=== PATIENT | female | born 1980 | race Caucasian/White ===

== ENCOUNTER 2017-02-14 15:46 | Emergency (ER) | payer MEDICAID ==
[2017-02-14] MEDS ORDERED: LORazepam 2 MG/ML MDV IVPUSH ONE ×2 (16:28→17:44)
[2017-02-14] MEDS ORDERED: Lactated Ringers 1,000 ML IV SCH (16:30)
--- NOTE | 2017-02-14 16:30 | EDM.PDOC ---
[id number] Chief Complaint: Abdominal Pain Stated Complaint: ABDOMINAL PAIN Time Seen by Provider: 02/14/17 16:24 - Related Data Allergies Allergy/AdvReac Type Severity Reaction Status Date / Time nitrofurantoin Allergy Severe Airway Verified 08/15/16 23:03 [From Macrodantin] Tightness amoxicillin [Amoxicillin] Allergy Rash Verified 08/15/16 23:03 ciprofloxacin Allergy Rash Verified 08/15/16 23:03 codeine Allergy Hives Verified 08/15/16 23:03 doxycycline Allergy Rash Verified 08/15/16 23:03 Penicillins Allergy Rash Verified 08/15/16 23:03 Sulfa (Sulfonamide Allergy Rash Verified 08/15/16 23:03 Antibiotics) sulfamethoxazole Allergy Hives Verified 08/15/16 23:03 [From Bactrim] trimethoprim [From Bactrim] Allergy Hives Verified 08/15/16 23:03 amoxicillin Allergy Airway Uncoded 08/15/16 23:03 Tightness bee venom Allergy Cannot Uncoded 08/15/16 23:03 Remember Home Meds: Home Meds LORazepam [Ativan] 1 mg PO ASDIRECTED PRN 06/11/14 [History] Ondansetron [Zofran ODT] 4 mg PO ASDIRECTED 06/11/14 [History] Venlafaxine [Effexor XR] 150 mg PO DAILY 06/11/14 [History] Multivitamin [Multivitamins] 1 tab PO DAILY 11/26/15 [History] Acyclovir [Zovirax 5% Oint] 1 applic TOP Q3H 06/23/16 [History] Docusate Sodium [Doc-Q-Lace] 200 mg PO DAILY 06/23/16 [History] EPINEPHrine [Epipen 2-Domenico] 0.3 ml IM ASDIRECTED 06/23/16 [History] Tretinoin [Retin-A 0.025% Cream] 1 applic TOP DAILY 06/23/16 [History] buPROPion [Wellbutrin XL] 300 mg PO DAILY 06/23/16 [History] Course - Vital Signs Last Recorded V/S: Last Vital Signs Temp 97.7 F 02/14/17 15:53 Pulse 82 02/14/17 21:00 Resp 16 02/14/17 21:00 BP 121/80 02/14/17 21:00 Pulse Ox 93 L 02/14/17 21:00 - Orders/Labs/Meds Orders: Active Orders 24 hr Category Date Time Status Peripheral IV Care [RC] . DIRECTED Care 02/14/17 16:27 Active Chest Abdomen Pelvis w Cont [CT] Stat Exams 02/14/17 18:00 Taken Peripheral IV Insertion Adult [OM.PC] Urgent Oth 02/14/17 16:27 Ordered Labs: Laboratory Tests 02/14/17 02/14/17 02/14/17 Range/Units 16:40 16:40 16:40 WBC 13.4 H (4.5-11.0) K/uL RBC 4.65 (3.30-5.50) M/uL Hgb 13.4 (12.0-15.0) g/dL Hct 40.9 (36.0-48.0) % MCV 88 (80-98) fL MCH 29 (27-31) pg MCHC 33 (32-36) % Plt Count 358 (150-400) K/uL Neut % (Auto) 60 (36-66) % Lymph % (Auto) 29 (24-44) % [place] % (Auto) 7 H (2-6) % Eos % (Auto) 3 (2-4) % Baso % (Auto) 1 (0-1) % Sodium 141 (140-148) mmol/L Potassium 4.3 (3.6-5.2) mmol/L Chloride 102 (100-108) mmol/L Carbon Dioxide 28 (21-32) mmol/L Anion Gap 10.6 (5.0-14.0) mmol/L BUN 12 (7-18) mg/dL Creatinine 0.9 (0.6-1.0) mg/dL Est Cr Clr Drug Dosing 83.23 mL/min Estimated GFR (MDRD) > 60 (>60) Glucose 86 (74-106) mg/dL Lactic Acid 4.7 H (0.4-2.0) mmol/L Calcium 9.4 D (8.5-10.1) mg/dL Total Bilirubin 0.3 (0.2-1.0) mg/dL AST 15 (15-37) U/L ALT 19 (12-78) U/L Alkaline Phosphatase 119 H (46-116) U/L Troponin I < 0.017 (0.000-0.056) ng/mL Total Protein 7.7 (6.4-8.2) g/dL Albumin 4.0 (3.4-5.0) g/dL Globulin 3.7 H (2.3-3.5) g/dL Albumin/Globulin Ratio 1.1 L (1.2-2.2) Lipase 86 (73-393) U/L Urine Color Urine Appearance Urine pH (4.5-8.0) Ur Specific [place] (1.008-1.030) Urine Protein (NEGATIVE) mg/dL Urine Glucose (UA) (NEGATIVE) mg/dL Urine Ketones (NEGATIVE) mg/dL Urine Occult Blood (NEGATIVE) Urine Nitrite (NEGATIVE) Urine Bilirubin (NEGATIVE) Urine Urobilinogen (NORMAL) mg/dL Ur Leukocyte Esterase (NEGATIVE) Urine RBC (0-5) Urine WBC (0-5) Ur Epithelial Cells Amorphous Sediment Urine Bacteria Urine Mucus Urine Other Urinalysis Comment Urine Opiates Screen (NEGATIVE) Ur Oxycodone Screen (NEGATIVE) Urine Methadone Screen (NEGATIVE) Ur Propoxyphene Screen (NEGATIVE) Ur Barbiturates Screen (NEGATIVE) Ur Tricyclics Screen (NEGATIVE) Ur Phencyclidine Scrn (NEGATIVE) Ur Amphetamine Screen (NEGATIVE) U Methamphetamines Scrn (NEGATIVE) Urine MDMA Screen (NEGATIVE) U Benzodiazepines Scrn (NEGATIVE) U Cocaine Metab Screen (NEGATIVE) U Marijuana (THC) Screen (NEGATIVE) 02/14/17 02/14/17 Range/Units 17:21 17:21 WBC (4.5-11.0) K/uL RBC (3.30-5.50) M/uL Hgb (12.0-15.0) g/dL Hct (36.0-48.0) % MCV (80-98) fL MCH (27-31) pg MCHC (32-36) % Plt Count (150-400) K/uL Neut % (Auto) (36-66) % Lymph % (Auto) (24-44) % [place] % (Auto) (2-6) % Eos % (Auto) (2-4) % Baso % (Auto) (0-1) % Sodium (140-148) mmol/L Potassium (3.6-5.2) mmol/L Chloride (100-108) mmol/L Carbon Dioxide (21-32) mmol/L Anion Gap (5.0-14.0) mmol/L BUN (7-18) mg/dL Creatinine (0.6-1.0) mg/dL Est Cr Clr Drug Dosing mL/min Estimated GFR (MDRD) (>60) Glucose (74-106) mg/dL Lactic Acid (0.4-2.0) mmol/L Calcium (8.5-10.1) mg/dL Total Bilirubin (0.2-1.0) mg/dL AST (15-37) U/L ALT (12-78) U/L Alkaline Phosphatase (46-116) U/L Troponin I (0.000-0.056) ng/mL Total Protein (6.4-8.2) g/dL Albumin (3.4-5.0) g/dL Globulin (2.3-3.5) g/dL Albumin/Globulin Ratio (1.2-2.2) Lipase (73-393) U/L Urine Color Yellow Urine Appearance Cloudy Urine pH 7.0 (4.5-8.0) Ur Specific [place] 1.015 (1.008-1.030) Urine Protein Negative (NEGATIVE) mg/dL Urine Glucose (UA) Normal (NEGATIVE) mg/dL Urine Ketones Negative (NEGATIVE) mg/dL Urine Occult Blood Negative (NEGATIVE) Urine Nitrite Negative (NEGATIVE) Urine Bilirubin Negative (NEGATIVE) Urine Urobilinogen Normal (NORMAL) mg/dL Ur Leukocyte Esterase Negative (NEGATIVE) Urine RBC 0-5 (0-5) Urine WBC 5-10 H (0-5) Ur Epithelial Cells Moderate Amorphous Sediment Few Urine Bacteria Few Urine Mucus Few Urine Other See note Urinalysis Comment Clue cells seen Urine Opiates Screen Negative (NEGATIVE) Ur Oxycodone Screen Positive H (NEGATIVE) Urine Methadone Screen Negative (NEGATIVE) Ur Propoxyphene Screen Negative (NEGATIVE) Ur Barbiturates Screen Negative (NEGATIVE) Ur Tricyclics Screen Negative (NEGATIVE) Ur Phencyclidine Scrn Negative (NEGATIVE) Ur Amphetamine Screen Positive H (NEGATIVE) U Methamphetamines Scrn Positive H (NEGATIVE) Urine MDMA Screen Positive H (NEGATIVE) U Benzodiazepines Scrn Negative (NEGATIVE) U Cocaine Metab Screen Negative (NEGATIVE) U Marijuana (THC) Screen Negative (NEGATIVE) Meds: Medications Discontinued Medications Generic Name Dose Route Start Last Admin Trade Name Freq PRN Reason Stop Dose Admin Lactated Ringer's 1,000 mls @ 999 mls/hr 02/14/17 16:30 02/14/17 16:43 Ringers, Lactated IV 999 mls/hr ASDIRECTED JONATHAN Administration Lactated Ringer's 1,000 mls @ 999 mls/hr 02/14/17 17:42 02/14/17 17:43 Ringers, Lactated IV 02/14/17 18:42 999 mls/hr BOLUS ONE Administration Sodium Chloride 80 mls @ 3 mls/sec 02/14/17 18:30 02/14/17 18:40 Normal Saline IV 3 mls/sec ASDIRECTED JONATHAN Administration Iopamidol 100 ml 02/14/17 18:30 02/14/17 18:40 Isovue-300 (61%) IV 100 ml . DIRECTED JONATHAN Administration Lorazepam 2 mg 02/14/17 16:28 02/14/17 16:41 Ativan IVPUSH 02/14/17 16:29 2 mg ONETIME ONE Administration Lorazepam 2 mg 02/14/17 17:44 02/14/17 18:13 Ativan IVPUSH 02/14/17 17:45 2 mg ONETIME ONE Administration Sodium Chloride 10 ml 02/14/17 16:27 02/14/17 18:38 Saline Flush FLUSH 10 ml ASDIRECTED PRN Administration Keep Vein Open - Re-Assessments/Exams Free Text/Narrative Re-Assessment/Exam: 02/14/17 23:04 Care of this patient was assumed from Dr. Schofield at about [address] PM [address] An abdominal CT was pending. The patient had been quite agitated earlier and had received multiple doses of Ativan. After the CT results came back the patient was too sedated to even talk with her. The CT was negative. We observed the lady several hours in the ER until she became more alert and could be discharged home. My impression is that she is been abusing methamphetamine and probably is in an opiate withdrawal. She is ready for discharge at this time. Departure - Departure Time of Disposition: 23:00 Disposition: Home, Self-Care 01 Condition: Fair Clinical Impression: Abdominal pain, Drug abuse - Discharge Information Instructions: Chemical Dependency, Abdominal or Pelvic Ultrasound, [id number] Referrals: PCP,None [Primary Care Provider] - Forms: ED Department Discharge Additional Instructions: Continue taking your prescription medicines. Your urine showed the opiate oxycodone. If a person has been taking oxycodone and they stop they will get withdrawal symptoms such as nausea vomiting and abdominal pain. Your urine also showed some methamphetamine which was probably the cause of your agitation and that's why you had to receive the sedative medication Ativan. You should avoid methamphetamine. - My Orders Last 24 Hours: My Active Orders 02/14/17 16:27 Peripheral IV Care [RC] . DIRECTED Peripheral IV Insertion Adult [OM.PC] Urgent 02/14/17 18:00 Chest Abdomen Pelvis w Cont [CT] Stat - Assessment/Plan Last 24 Hours: My Active Orders 02/14/17 16:27 Peripheral IV Care [RC] . DIRECTED Peripheral IV Insertion Adult [OM.PC] Urgent 02/14/17 18:00 Chest Abdomen Pelvis w Cont [CT] Stat <ConnerrHair - Last Filed: 02/15/17 07:01> ED HPI GENERAL MEDICAL PROBLEM - General Source of Information: Reports: Patient, RN Notes Reviewed History Limitations: Reports: No Limitations - History of Present Illness INITIAL COMMENTS - FREE TEXT/NARRATIVE: 36-year-old female presents emergency department day complaint of abdominal pain she is visibly agitated shaking and very diaphoretic difficult to obtain any history or review of systems due to her anxious state Lower Abdominal Pain Score (Numeric/FACES): 10 Past Medical History Gastrointestinal History: Reports: Cholelithiasis, Chronic Constipation, Gastritis Genitourinary History: Reports: Renal Calculus APPLICATION TESTER History: Reports: Polycystic Ovaries, Psychiatric History: Reports: Addiction, Depression Endocrine/Metabolic History: Reports: Other (See Below) Other Endocrine/Metabolic History: Graves disease Dermatologic History: Reports: Other (See Below) Other Dermatologic History: achne - Infectious Disease History Infectious Disease History: Reports: Chicken Pox - Past Surgical History GI Surgical History: Reports: Cholecystectomy Female Surgical History: Reports: Kidney stone extraction Social & Family History - Tobacco Use Smoking Status *Q: Heavy Tobacco Smoker Years of Tobacco use: 20 Packs/Tins Daily: 0.5 Used Tobacco, but Quit: No Second Hand Smoke Exposure: Yes - Caffeine Use Caffeine Use: Reports: Coffee, Energy Drinks, Soda Caffeine Use Comment: lots - Alcohol Use Days Per Week of Alcohol Use: 3 Number of Drinks Per Day: 2 Total Drinks Per Week: 6 - Recreational Drug Use Recreational Drug Use: No - Living Situation & Occupation Living situation: Reports: with Significant Other ED ROS GENERAL - Review of Systems Review Of Systems: Unable To Obtain ED EXAM, GI/ABD - Physical Exam Exam: See Below Exam Limited By: Intoxication General Appearance: Severe Distress Respiratory/Chest: No Respiratory Distress, Lungs Clear, Normal Breath Sounds, No Accessory Muscle Use Cardiovascular: Regular Rate, Rhythm, No Murmur GI/Abdominal: Other (Will not allow me to do exam due to hyperactive state) Course - Orders/Labs/Meds Labs: Laboratory Tests 02/14/17 02/14/17 02/14/17 Range/Units 16:40 16:40 16:40 WBC 13.4 H (4.5-11.0) K/uL RBC 4.65 (3.30-5.50) M/uL Hgb 13.4 (12.0-15.0) g/dL Hct 40.9 (36.0-48.0) % MCV 88 (80-98) fL MCH 29 (27-31) pg MCHC 33 (32-36) % Plt Count 358 (150-400) K/uL Neut % (Auto) 60 (36-66) % Lymph % (Auto) 29 (24-44) % [place] % (Auto) 7 H (2-6) % Eos % (Auto) 3 (2-4) % Baso % (Auto) 1 (0-1) % Sodium 141 (140-148) mmol/L Potassium 4.3 (3.6-5.2) mmol/L Chloride 102 (100-108) mmol/L Carbon Dioxide 28 (21-32) mmol/L Anion Gap 10.6 (5.0-14.0) mmol/L BUN 12 (7-18) mg/dL Creatinine 0.9 (0.6-1.0) mg/dL Est Cr Clr Drug Dosing 83.23 mL/min Estimated GFR (MDRD) > 60 (>60) Glucose 86 (74-106) mg/dL Lactic Acid 4.7 H (0.4-2.0) mmol/L Calcium 9.4 D (8.5-10.1) mg/dL Total Bilirubin 0.3 (0.2-1.0) mg/dL AST 15 (15-37) U/L ALT 19 (12-78) U/L Alkaline Phosphatase 119 H (46-116) U/L Troponin I < 0.017 (0.000-0.056) ng/mL Total Protein 7.7 (6.4-8.2) g/dL Albumin 4.0 (3.4-5.0) g/dL Globulin 3.7 H (2.3-3.5) g/dL Albumin/Globulin Ratio 1.1 L (1.2-2.2) Lipase 86 (73-393) U/L Urine Color Urine Appearance Urine pH (4.5-8.0) Ur Specific [place] (1.008-1.030) Urine Protein (NEGATIVE) mg/dL Urine Glucose (UA) (NEGATIVE) mg/dL Urine Ketones (NEGATIVE) mg/dL Urine Occult Blood (NEGATIVE) Urine Nitrite (NEGATIVE) Urine Bilirubin (NEGATIVE) Urine Urobilinogen (NORMAL) mg/dL Ur Leukocyte Esterase (NEGATIVE) Urine RBC (0-5) Urine WBC (0-5) Ur Epithelial Cells Amorphous Sediment Urine Bacteria Urine Mucus Urine Other Urinalysis Comment Urine Opiates Screen (NEGATIVE) Ur Oxycodone Screen (NEGATIVE) Urine Methadone Screen (NEGATIVE) Ur Propoxyphene Screen (NEGATIVE) Ur Barbiturates Screen (NEGATIVE) Ur Tricyclics Screen (NEGATIVE) Ur Phencyclidine Scrn (NEGATIVE) Ur Amphetamine Screen (NEGATIVE) U Methamphetamines Scrn (NEGATIVE) Urine MDMA Screen (NEGATIVE) U Benzodiazepines Scrn (NEGATIVE) U Cocaine Metab Screen (NEGATIVE) U Marijuana (THC) Screen (NEGATIVE) 02/14/17 02/14/17 Range/Units 17:21 17:21 WBC (4.5-11.0) K/uL RBC (3.30-5.50) M/uL Hgb (12.0-15.0) g/dL Hct (36.0-48.0) % MCV (80-98) fL MCH (27-31) pg MCHC (32-36) % Plt Count (150-400) K/uL Neut % (Auto) (36-66) % Lymph % (Auto) (24-44) % [place] % (Auto) (2-6) % Eos % (Auto) (2-4) % Baso % (Auto) (0-1) % Sodium (140-148) mmol/L Potassium (3.6-5.2) mmol/L Chloride (100-108) mmol/L Carbon Dioxide (21-32) mmol/L Anion Gap (5.0-14.0) mmol/L BUN (7-18) mg/dL Creatinine (0.6-1.0) mg/dL Est Cr Clr Drug Dosing mL/min Estimated GFR (MDRD) (>60) Glucose (74-106) mg/dL Lactic Acid (0.4-2.0) mmol/L Calcium (8.5-10.1) mg/dL Total Bilirubin (0.2-1.0) mg/dL AST (15-37) U/L ALT (12-78) U/L Alkaline Phosphatase (46-116) U/L Troponin I (0.000-0.056) ng/mL Total Protein (6.4-8.2) g/dL Albumin (3.4-5.0) g/dL Globulin (2.3-3.5) g/dL Albumin/Globulin Ratio (1.2-2.2) Lipase (73-393) U/L Urine Color Yellow Urine Appearance Cloudy Urine pH 7.0 (4.5-8.0) Ur Specific [place] 1.015 (1.008-1.030) Urine Protein Negative (NEGATIVE) mg/dL Urine Glucose (UA) Normal (NEGATIVE) mg/dL Urine Ketones Negative (NEGATIVE) mg/dL Urine Occult Blood Negative (NEGATIVE) Urine Nitrite Negative (NEGATIVE) Urine Bilirubin Negative (NEGATIVE) Urine Urobilinogen Normal (NORMAL) mg/dL Ur Leukocyte Esterase Negative (NEGATIVE) Urine RBC 0-5 (0-5) Urine WBC 5-10 H (0-5) Ur Epithelial Cells Moderate Amorphous Sediment Few Urine Bacteria Few Urine Mucus Few Urine Other See note Urinalysis Comment Clue cells seen Urine Opiates Screen Negative (NEGATIVE) Ur Oxycodone Screen Positive H (NEGATIVE) Urine Methadone Screen Negative (NEGATIVE) Ur Propoxyphene Screen Negative (NEGATIVE) Ur Barbiturates Screen Negative (NEGATIVE) Ur Tricyclics Screen Negative (NEGATIVE) Ur Phencyclidine Scrn Negative (NEGATIVE) Ur Amphetamine Screen Positive H (NEGATIVE) U Methamphetamines Scrn Positive H (NEGATIVE) Urine MDMA Screen Positive H (NEGATIVE) U Benzodiazepines Scrn Negative (NEGATIVE) U Cocaine Metab Screen Negative (NEGATIVE) U Marijuana (THC) Screen Negative (NEGATIVE)
[2017-02-14] MEDS: Sodium Chloride 0.9% 10 ML Syringe FLUSH PRN ×2 (16:43→18:38)
[2017-02-14] MEDS ORDERED: Lactated Ringers 1,000 ML IV ONE (17:42)
[2017-02-14] MEDS ORDERED: Iopamidol 612 MG/ML 100 ML Bottle IV SCH (18:30)
[2017-02-14] MEDS ORDERED: Sodium Chloride 0.9% 80 ML IV SCH (18:30)
[2017-02-14 21:00] VITALS: BP 121/80
== END 2017-02-14 23:15 | disposition home or self-care (01) ==
LOC: JP.ED 15:46
DX: R10.30 Lower abdominal pain, unspecified (principal); E28.2 Polycystic ovarian syndrome; F17.210 Nicotine dependence, cigarettes, uncomplicated; F19.10 Other psychoactive substance abuse, uncomplicated; Z87.442 Personal history of urinary calculi; Z90.49 Acquired absence of other specified parts of digestive tract
CPT/HCPCS: 36415; 71260; 74177; 80053; 80305; 81001; 83605; 83690; 84484; 85025; 96361; 96374; 96376; 99284; J2060; J7030; J7050; J7120; Q9967

== ENCOUNTER 2020-07-11 23:26 | Emergency (ER) | payer MEDICAID ==
[2020-07-11 23:58] VITALS: BP 131/82; PULSE 76
--- NOTE | 2020-07-12 00:11 | EDM.PDOC ---
ED HPI GENERAL MEDICAL PROBLEM - General Chief Complaint: Allergic Reaction Stated Complaint: REACTION Time Seen by Provider: 07/11/20 23:59 Source of Information: Reports: Patient, RN Notes Reviewed History Limitations: Reports: No Limitations - History of Present Illness INITIAL COMMENTS - FREE TEXT/NARRATIVE: 39-year-old female presents emergency department today with complaint of allergic reaction she is on sure of what could be causing this she does have some edema around her eyes some inflammation in her lips she states it feels like her tongue is swollen no difficulty breathing no difficulty swallowing has visited with her primary care about this did do a short course of steroids which helped her however she has been off medication for 2 weeks also of note they did get a new supply of masks in about 2 weeks prior, she has tried both Benadryl and Claritin with no relief heartburn Pain Score (Numeric/FACES): 7 - Related Data Allergies Allergy/AdvReac Type Severity Reaction Status Date / Time nitrofurantoin Allergy Severe Airway Verified 08/15/16 23:03 [From Macrodantin] Tightness amoxicillin [Amoxicillin] Allergy Rash Verified 08/15/16 23:03 ciprofloxacin Allergy Rash Verified 08/15/16 23:03 codeine Allergy Hives Verified 08/15/16 23:03 doxycycline Allergy Rash Verified 08/15/16 23:03 Penicillins Allergy Rash Verified 08/15/16 23:03 Sulfa (Sulfonamide Allergy Rash Verified 08/15/16 23:03 Antibiotics) sulfamethoxazole Allergy Hives Verified 08/15/16 23:03 [From Bactrim] trimethoprim [From Bactrim] Allergy Hives Verified 08/15/16 23:03 amoxicillin Allergy Airway Uncoded 08/15/16 23:03 Tightness bee venom Allergy Cannot Uncoded 08/15/16 23:03 Remember Home Meds: Home Meds NK [No Known Home Meds] 07/11/20 [History] Past Medical History Gastrointestinal History: Reports: Cholelithiasis, Chronic Constipation, Gastritis Genitourinary History: Reports: Renal Calculus OCCUPATIONAL THERAPY DIRECTOR History: Reports: Polycystic Ovaries, Psychiatric History: Reports: Addiction, Depression Endocrine/Metabolic History: Reports: Other (See Below) Other Endocrine/Metabolic History: Graves disease Dermatologic History: Reports: Other (See Below) Other Dermatologic History: acne - Infectious Disease History Infectious Disease History: Reports: Chicken Pox - Past Surgical History GI Surgical History: Reports: Cholecystectomy Female Surgical History: Reports: Kidney stone extraction Social & Family History - Tobacco Use Tobacco Use Status *Q: Current Every Day Tobacco User Years of Tobacco use: 34 Packs/Tins Daily: 0.5 - Caffeine Use Caffeine Use: Reports: Coffee Caffeine Use Comment: lots - Recreational Drug Use Recreational Drug Use: No - Living Situation & Occupation Living situation: Reports: with Significant Other ED ROS ALLERGIC REACTION - Review of Systems Review Of Systems: See Below Constitutional: Reports: No Symptoms HEENT: Reports: Throat Swelling, Other (Edema around the eyes, lip swelling) Respiratory: Reports: No Symptoms Cardiovascular: Reports: No Symptoms GI/Abdominal: Reports: No Symptoms ED EXAM GENERAL NO PERIP PULSE - Physical Exam Exam: See Below Exam Limited By: No Limitations General Appearance: Alert, WD/WN, No Apparent Distress Eye Exam: Bilateral Eye: Other (Edema upper eyelids) Throat/Mouth: Normal Teeth, Normal Gums, Normal Voice, No Airway Compromise, Inflammation Neck: Normal Inspection, Supple, Non-Tender, Full Range of Motion Respiratory/Chest: No Respiratory Distress, Lungs Clear, Normal Breath Sounds, No Accessory Muscle Use, Chest Non-Tender Cardiovascular: Regular Rate, Rhythm, No Murmur Course - Vital Signs Last Recorded V/S: Last Vital Signs Temp 98.8 F 07/11/20 23:52 Pulse 76 07/11/20 23:52 Resp 15 07/11/20 23:52 BP 131/82 07/11/20 23:52 Pulse Ox 96 07/11/20 23:52 Departure - Departure Time of Disposition: 00:10 Disposition: Home, Self-Care 01 Condition: Fair Clinical Impression: Allergic reaction Qualifiers: Encounter type: initial encounter Qualified Code(s): T78.40XA - Allergy, unspecified, initial encounter - Discharge Information Instructions: Allergies, Adult, [id number] Referrals: Rj Lew MD [Primary Care Provider] - Additional Instructions: Continue with the prednisone 10 mg/day, follow-up with your primary care in the next 3 to 5 days for reevaluation, call or return to the emergency department worsening of symptoms Sepsis Event Note (ED) - Evaluation Sepsis Screening Result: No Definite Risk - Focused Exam Vital Signs: Vital Signs Temp Pulse Resp BP Pulse Ox 07/11/20 23:52 98.8 F 76 15 131/82 96 - Assessment/Plan Plan: Assessment Acuity = acute Site and laterality = allergic reaction Etiology = unknown suspicious for mask Manifestations = none Location of injury = Home Lab values = none Plan Prescription written for prednisone 10 mg p.o. daily continue to follow-up with primary care for further evaluation This note was dictated using Prism[employer] voice recognition software please call with any questions on syntax or grammar.
== END 2020-07-12 00:24 | disposition home or self-care (01) ==
LOC: JP.ED 23:26
DX: T78.40XA Allergy, unspecified, initial encounter (principal); F17.210 Nicotine dependence, cigarettes, uncomplicated; Z88.1 Allergy status to other antibiotic agents; Z88.5 Allergy status to narcotic agent; Z88.0 Allergy status to penicillin; Z88.2 Allergy status to sulfonamides; Z91.030 Bee allergy status; Z90.49 Acquired absence of other specified parts of digestive tract
CPT/HCPCS: 99283

== ENCOUNTER 2023-01-09 02:29 | Emergency (ER) | payer MEDICAID ==
[2023-01-09 02:42] VITALS: BP 138/85; PULSE 74
[2023-01-09] MEDS ORDERED: Alum Hydrox/Mag Hydrox/Simeth 15 ML, Lidocaine 2% 15 ML PO ONE ×2 (03:01)
[2023-01-09] MEDS ORDERED: Aluminum Hydroxide/Magnesium Hydroxide/Simethicone Susp 30 ML Cup PO ONE (03:09)
[2023-01-09] MEDS ORDERED: Pantoprazole 40 MG Vial IVPUSH ONE (03:30)
[2023-01-09] MEDS ORDERED: Lidocaine 2% Jelly 10 ML Urojet MUCMEM ONE (03:56)
== END 2023-01-09 04:16 | disposition home or self-care (01) ==
LOC: EEVIPCON 02:29 → JP.ED 02:29
DX: R12 Heartburn (principal); T38.0X5A Adverse effect of glucocorticoids and synthetic analogues, initial encounter; Z88.1 Allergy status to other antibiotic agents; Z88.5 Allergy status to narcotic agent; Z88.0 Allergy status to penicillin; Z91.030 Bee allergy status; Z88.2 Allergy status to sulfonamides; Z72.0 Tobacco use
CPT/HCPCS: 96374; 99283; A9270; C9113

== ENCOUNTER 2025-03-03 21:41 | Emergency (ER) | payer BC, MEDICAID ==
[2025-03-03 23:05] LABS: BASOPHILS ABSOLUTE AUTO 0.07 K/uL (0.00-0.10); BASOPHILS PERCENT AUTO 0.7 % (0.1-1.3); EOSINOPHILS ABSOLUTE AUTO 0.69 K/uL (0.00-0.40); EOSINOPHILS PERCENT AUTO 6.6 % (0.0-5.4); IMMATURE GRAN ABSOLUTE AUTO 0.03 K/uL (0.00-0.23); IMMATURE GRAN PERCENT AUTO 0.3 % (0.0-0.7); LYMPHOCYTES ABSOLUTE AUTO 2.61 K/uL (0.8-3.3); LYMPHOCYTES PERCENT AUTO 24.9 % (11.4-47.7); MONOCYTES ABSOLUTE AUTO 0.63 K/uL (0.20-0.90); MONOCYTES PERCENT AUTO 6.0 % (3.3-12.6); NEUTROPHILS ABSOLUTE AUTO 6.46 K/uL (1.0-7.6); NEUTROPHILS PERCENT AUTO 61.5 % (40.0-78.1); PLATELET COUNT,PLT 270 K/uL (130-375); RED BLOOD CELL COUNT 4.65 M/uL (3.77-5.24); WHITE BLOOD CELL COUNT,WBC 10.5 K/uL (3.2-11.0)
[2025-03-03] MEDS: Ketorolac 30 MG/ML SDV IVPUSH ONE (23:07)
[2025-03-03 23:14] LABS: A/G RATIO 1.5 (1.2-2.2); ALANINE AMINOTRANSFERASE,ALT 29 U/L (12-78); ASPARTATE AMNIOTRANSFERASE,AST 18 U/L (15-37); BILIRUBIN TOTAL 0.3 mg/dL (0.2-1.0); BLOOD UREA NITROGEN,BUN 10 mg/dL (7-18); CARBON DIOXIDE,CO2 28 mmol/L (21-32); CHLORIDE,CL 104 mmol/L (100-108); CREATININE 0.8 mg/dL (0.6-1.0); EST CRCL DRUG DOSING (CG) 83.13 mL/min; ESTIMATED GFR 93 mL/min (>60); GLUCOSE RANDOM 94 mg/dL (74-106); POTASSIUM,K 3.9 mmol/L (3.6-5.2); PROTEIN TOTAL,TP 6.8 g/dL (6.4-8.2); SODIUM,NA 139 mmol/L (140-148)
[2025-03-03 23:26] LABS: APPEARANCE,URINE CLEAR (CLEAR); GLUCOSE,URINE NEGATIVE (NEGATIVE); OCCULT BLOOD,URINE TRACE-INTACT (NEGATIVE)
[2025-03-03 23:32] LABS: SQUAMOUS EPITHELIAL CELLS,UR RARE /HPF; UROTHELIAL CELLS,URINE NOT SEEN /HPF
[2025-03-04 00:14] VITALS: BP 109/61; PULSE 69
== END 2025-03-04 00:50 | disposition home or self-care (01) ==
LOC: JP.ED 21:41
DX: R10.31 Right lower quadrant pain (principal); Z88.8 Allergy status to other drugs, medicaments and biological substances; Z88.5 Allergy status to narcotic agent; Z91.013 Allergy to seafood; Z88.1 Allergy status to other antibiotic agents; Z88.0 Allergy status to penicillin; Z88.2 Allergy status to sulfonamides; Z91.030 Bee allergy status; Z79.899 Other long term (current) drug therapy; Z86.16 Personal history of COVID-19
CPT/HCPCS: 36415; 74176; 80053; 81001; 83690; 85025; 86140; 96374; 99284; J1885